=== PATIENT | male | born 1955 | race Caucasian/White ===

== ENCOUNTER 2019-08-28 17:18 | Emergency (ER) | payer MEDICARE, OTHER ==
[2019-08-28 17:20] VITALS: BP 168/78
--- NOTE | 2019-08-28 17:24 | ED General ---
General Stated Complaint: TOE LACERATION History of Present Illness Date Seen by Provider: August 28, 2019 Time Seen by Provider: 17:23 Initial Comments Patient presenting to emergency department for evaluation of right big toe laceration that was sustained earlier today at approximately 3:00. Patient is on insulin pump and has advanced diabetic neuropathy and he has very limited sensation and he does not know what exactly happened but he has an elliptical cut to the bottom of his big toe. He is not sure on his last tetanus shot so was updated here. He is here because he has had continued bleeding from the wound as he is on Zarontin and Plavix for his multiple vascular issues. He is in no obvious distress with normal vital signs. Allergies and Home Medications Patient Home Medication List Home Medication List Reviewed: Yes Review of Systems Review of Systems Constitutional: no symptoms reported Respiratory: no symptoms reported Cardiovascular: no symptoms reported Skin: other (wound) Past Eriscmy-Dcekff-Nmunbr Hx Patient Social History Recent Foreign Travel: No Contact w/Someone Who Travel: No Physical Exam Vital Signs Capillary Refill : Height, Weight, BMI Height: '" Weight: lbs. oz. kg; BMI Method: General Appearance: No Apparent Distress, WD/WN Skin: Other (approximate 2 cm elliptical surface cut with bleeding noted on the bottom of his big toe. The bleeding is very minimal at this time.) Progress/Results/Core Measures Suspected Sepsis SIRS Temperature: Pulse: Respiratory Rate: Blood Pressure / Mean: Results/Orders Vital Signs/I&O Capillary Refill : Progress Note : Progress Note Bleeding had almost stopped completely except for a pinpoint lesion so I used silver nitrate to cauterize the bleeding and then placed Dermabond on the wound to reinforce it to hopefully keep it from bleeding again. The wound was wrapped and he had intact cap refill after wrapping. Given he is a diabetic he was started on Keflex. Patient told to have the wound rechecked within 24-48 hours and come back to the ED sooner with worsening pain bleeding signs of infection or other general concerns. Patient aware and agreeable with plan and verbalized understanding of the above instructions. Departure Impression Primary Impression: Toe laceration Qualified Codes: S91.111A - Laceration without foreign body of right great toe without damage to nail, initial encounter Disposition: 01 HOME, SELF-CARE Condition: Stable Departure-Patient Inst. Referrals: KAMLA MOSER MD (PCP/Family) Primary Care Physician Patient Instructions: Wound Care Scripts Cephalexin (Keflex) 500 Mg Capsule 500 MG PO TID for 7 Days, CAP Prov: ANSHU ROJAS DO 08/28/19 ANSHU ROJAS DO August 28, 2019 17:24
[2019-08-28] MEDS ORDERED: TETANUS,DIPTH,PERTUSS P/F (BOOSTRIX) 0.5 ML VIAL IM ONE (17:45)
[2019-08-28] MEDS ORDERED: CEPH-507 PO (17:46)
--- OUTSIDE RECORDS SUMMARY | 2019-08-28 20:15 | XMS REPORT | Continuity of Care Document ---
Author Organization Unknown Address Unknown Phone Unavailable Allergies There is no data. Medications There is no data. Problems There is no data. Procedures There is no data. Results There is no data. Encounters ACCT No. Visit Date/Time Discharge Status Pt. Type Provider Facility Loc./Unit Complaint [id number] 08/28/2019 17:21:00 020 17:52:00 DIS Emergency ANSHU ROJAS DO [facility] ER FS TOE LACERATION [id number] 08/06/2018 15:03:00 019 23:59:59 CLS Preadmit KAMLA MOSER MD [facility] RAD DDD
== END 2019-08-28 17:52 | disposition home or self-care (01) ==
LOC: EDUNIT# 17:18 → ER FS 17:21
DX: S91.111A Laceration without foreign body of right great toe without damage to nail, initial encounter (principal); E11.40 Type 2 diabetes mellitus with diabetic neuropathy, unspecified; Z79.4 Long term (current) use of insulin; Z23 Encounter for immunization; X58.XXXA Exposure to other specified factors, initial encounter
CPT/HCPCS: 12002; 90715

== ENCOUNTER 2020-02-13 07:15 | Outpatient (CLI) | payer MEDICARE, OTHER ==
[~2020-02-13 07:15] MED LIST: CEPH-507 PO
== END 2020-12-15 10:45 | disposition home or self-care (01) ==
LOC: LAB FS 07:15
PROVIDERS: ATTEND Pediatrics
DX: U07.1 COVID-19 (principal)
CPT/HCPCS: 87635

== ENCOUNTER → 2022-01-14 | Outpatient (CLI) | payer MEDICARE, OTHER | LOC: WOUNDCARE 09:26 | PROVIDERS: ATTEND Family Medicine | DX: T81.31XA Disruption of external operation (surgical) wound, not elsewhere classified, initial encounter (principal); T87.89 Other complications of amputation stump; T87.43 Infection of amputation stump, right lower extremity; M86.471 Chronic osteomyelitis with draining sinus, right ankle and foot; E11.621 Type 2 diabetes mellitus with foot ulcer; E11.65 Type 2 diabetes mellitus with hyperglycemia; E11.40 Type 2 diabetes mellitus with diabetic neuropathy, unspecified; B95.62 Methicillin resistant Staphylococcus aureus infection as the cause of diseases classified elsewhere; I25.10 Atherosclerotic heart disease of native coronary artery without angina pectoris; N18.30 Chronic kidney disease, stage 3 unspecified; M62.81 Muscle weakness (generalized); R11.0 Nausea | CPT/HCPCS: 11042; G0463 ==

== ENCOUNTER → 2022-01-20 | Outpatient (CLI) | payer MEDICARE, OTHER | LOC: WOUNDCARE 08:14 | PROVIDERS: ATTEND Family Medicine | DX: T81.31XA Disruption of external operation (surgical) wound, not elsewhere classified, initial encounter (principal); T87.89 Other complications of amputation stump; T87.43 Infection of amputation stump, right lower extremity; M86.471 Chronic osteomyelitis with draining sinus, right ankle and foot; E11.621 Type 2 diabetes mellitus with foot ulcer; E11.65 Type 2 diabetes mellitus with hyperglycemia; E11.40 Type 2 diabetes mellitus with diabetic neuropathy, unspecified; E11.22 Type 2 diabetes mellitus with diabetic chronic kidney disease; N18.30 Chronic kidney disease, stage 3 unspecified; R53.1 Weakness; R11.0 Nausea; B95.62 Methicillin resistant Staphylococcus aureus infection as the cause of diseases classified elsewhere; I25.10 Atherosclerotic heart disease of native coronary artery without angina pectoris; E11.52 Type 2 diabetes mellitus with diabetic peripheral angiopathy with gangrene; I96 Gangrene, not elsewhere classified | CPT/HCPCS: 11042; G0463 ==

== ENCOUNTER → 2022-01-28 | Outpatient (CLI) | payer MEDICARE, OTHER | LOC: WOUNDCARE 10:23 | PROVIDERS: ATTEND Family Medicine | DX: T81.31XA Disruption of external operation (surgical) wound, not elsewhere classified, initial encounter (principal); T87.89 Other complications of amputation stump; T87.43 Infection of amputation stump, right lower extremity; M86.471 Chronic osteomyelitis with draining sinus, right ankle and foot; E11.621 Type 2 diabetes mellitus with foot ulcer; E11.65 Type 2 diabetes mellitus with hyperglycemia; E11.40 Type 2 diabetes mellitus with diabetic neuropathy, unspecified; B95.62 Methicillin resistant Staphylococcus aureus infection as the cause of diseases classified elsewhere; I25.10 Atherosclerotic heart disease of native coronary artery without angina pectoris; E11.22 Type 2 diabetes mellitus with diabetic chronic kidney disease; N18.30 Chronic kidney disease, stage 3 unspecified; M62.81 Muscle weakness (generalized); E11.52 Type 2 diabetes mellitus with diabetic peripheral angiopathy with gangrene | CPT/HCPCS: 11042 ==

== ENCOUNTER → 2022-02-04 | Outpatient (CLI) | payer MEDICARE, OTHER | LOC: WOUNDCARE 11:05 | PROVIDERS: ATTEND Family Medicine | DX: T81.31XA Disruption of external operation (surgical) wound, not elsewhere classified, initial encounter (principal); T87.89 Other complications of amputation stump; T87.43 Infection of amputation stump, right lower extremity; M86.471 Chronic osteomyelitis with draining sinus, right ankle and foot; E11.621 Type 2 diabetes mellitus with foot ulcer; L97.509 Non-pressure chronic ulcer of other part of unspecified foot with unspecified severity; E11.40 Type 2 diabetes mellitus with diabetic neuropathy, unspecified; B95.62 Methicillin resistant Staphylococcus aureus infection as the cause of diseases classified elsewhere; I25.10 Atherosclerotic heart disease of native coronary artery without angina pectoris; E11.22 Type 2 diabetes mellitus with diabetic chronic kidney disease; E11.65 Type 2 diabetes mellitus with hyperglycemia; N18.30 Chronic kidney disease, stage 3 unspecified; R53.1 Weakness | CPT/HCPCS: 11042; G0463 ==

== ENCOUNTER → 2022-02-18 | Outpatient (CLI) | payer MEDICARE, OTHER | LOC: WOUNDCARE 08:38 | PROVIDERS: ATTEND Family Medicine | DX: I96 Gangrene, not elsewhere classified (principal); T81.31XA Disruption of external operation (surgical) wound, not elsewhere classified, initial encounter; T87.89 Other complications of amputation stump; T87.43 Infection of amputation stump, right lower extremity; M86.471 Chronic osteomyelitis with draining sinus, right ankle and foot; E11.621 Type 2 diabetes mellitus with foot ulcer; E11.65 Type 2 diabetes mellitus with hyperglycemia; E11.40 Type 2 diabetes mellitus with diabetic neuropathy, unspecified; I25.10 Atherosclerotic heart disease of native coronary artery without angina pectoris; N18.30 Chronic kidney disease, stage 3 unspecified; M62.81 Muscle weakness (generalized) | CPT/HCPCS: 11042; A6197; A6212; G0463 ==

== ENCOUNTER → 2022-02-25 | Outpatient (CLI) | payer MEDICARE, OTHER | LOC: WOUNDCARE 08:50 | PROVIDERS: ATTEND Family Medicine | DX: I96 Gangrene, not elsewhere classified (principal); T87.89 Other complications of amputation stump; E11.621 Type 2 diabetes mellitus with foot ulcer; E11.40 Type 2 diabetes mellitus with diabetic neuropathy, unspecified; E11.65 Type 2 diabetes mellitus with hyperglycemia; I25.10 Atherosclerotic heart disease of native coronary artery without angina pectoris; N18.30 Chronic kidney disease, stage 3 unspecified; M62.81 Muscle weakness (generalized) | CPT/HCPCS: A6212; G0463; 99212 ==

== ENCOUNTER → 2022-03-01 | Outpatient (CLI) | payer MEDICARE, OTHER | LOC: WOUNDCARE 08:29 | PROVIDERS: ATTEND Family Medicine | DX: T81.31XA Disruption of external operation (surgical) wound, not elsewhere classified, initial encounter (principal); T87.89 Other complications of amputation stump; E11.621 Type 2 diabetes mellitus with foot ulcer; E11.65 Type 2 diabetes mellitus with hyperglycemia; E11.40 Type 2 diabetes mellitus with diabetic neuropathy, unspecified; I25.10 Atherosclerotic heart disease of native coronary artery without angina pectoris; E11.22 Type 2 diabetes mellitus with diabetic chronic kidney disease; N18.30 Chronic kidney disease, stage 3 unspecified; M62.81 Muscle weakness (generalized); E11.52 Type 2 diabetes mellitus with diabetic peripheral angiopathy with gangrene; I96 Gangrene, not elsewhere classified | CPT/HCPCS: 11042; A6212; G0463 ==

== ENCOUNTER → 2022-03-11 | Outpatient (CLI) | payer MEDICARE, OTHER | LOC: WOUNDCARE 08:28 | PROVIDERS: ATTEND Family Medicine | DX: T81.31XA Disruption of external operation (surgical) wound, not elsewhere classified, initial encounter (principal); T87.89 Other complications of amputation stump; E11.621 Type 2 diabetes mellitus with foot ulcer; E11.65 Type 2 diabetes mellitus with hyperglycemia; E11.40 Type 2 diabetes mellitus with diabetic neuropathy, unspecified; I25.10 Atherosclerotic heart disease of native coronary artery without angina pectoris; E11.22 Type 2 diabetes mellitus with diabetic chronic kidney disease; N18.30 Chronic kidney disease, stage 3 unspecified; M62.81 Muscle weakness (generalized); E11.52 Type 2 diabetes mellitus with diabetic peripheral angiopathy with gangrene | CPT/HCPCS: 11042; 85652; 86141; A6212; G0463; 36415 ==

== ENCOUNTER → 2022-03-15 | Outpatient (CLI) | payer MEDICARE, OTHER ==
[~2022-03-15] MED LIST changes: +CATHETER FLUSH 10 ML SYR IVP PRN
--- NOTE | 2022-03-15 20:35 | Diagnostic Imaging Report ---
INDICATION: Open wound on the lateral side of the right foot. 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 Patient was administered 25.6 mCi technetium 99m MDP intravenously and dynamic flow, blood pool and delayed imaging over bilateral feet was performed. There appears to be some asymmetric increased blood flow to the left foot. There is also some blood pool and delayed imaging in the midportion of the left foot. Right foot does show normal blood flow, blood pool and delayed activity. No definite findings to suggest osteomyelitis in the right foot is seen. There does appear to be some three-phase abnormality in the midportion of the left foot and correlation with plain films or MRI would be useful for further evaluation. IMPRESSION: 1. 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 No abnormality in the right foot is seen. Dictated by: Dictated on workstation # [id number]
== END ==
LOC: CARD 11:14
PROVIDERS: ATTEND Family Medicine
DX: T87.89 Other complications of amputation stump (principal)
CPT/HCPCS: 78315; A9503

== ENCOUNTER → 2022-03-18 | Outpatient (CLI) | payer MEDICARE, OTHER ==
[~2022-03-18] MED LIST changes: -CATHETER FLUSH 10 ML SYR IVP PRN
== END ==
LOC: WOUNDCARE 08:36
PROVIDERS: ATTEND Family Medicine
DX: T81.31XA Disruption of external operation (surgical) wound, not elsewhere classified, initial encounter (principal); T87.89 Other complications of amputation stump; E11.621 Type 2 diabetes mellitus with foot ulcer; E11.65 Type 2 diabetes mellitus with hyperglycemia; E11.40 Type 2 diabetes mellitus with diabetic neuropathy, unspecified; I25.10 Atherosclerotic heart disease of native coronary artery without angina pectoris; E11.22 Type 2 diabetes mellitus with diabetic chronic kidney disease; N18.30 Chronic kidney disease, stage 3 unspecified; M62.81 Muscle weakness (generalized); L97.509 Non-pressure chronic ulcer of other part of unspecified foot with unspecified severity; E11.52 Type 2 diabetes mellitus with diabetic peripheral angiopathy with gangrene; I96 Gangrene, not elsewhere classified
CPT/HCPCS: 11042; 87070; 87077; 87205; A6212; G0463; 87186

== ENCOUNTER → 2022-03-25 | Outpatient (CLI) | payer MEDICARE, OTHER | LOC: WOUNDCARE 08:37 | PROVIDERS: ATTEND Family Medicine | DX: T81.31XA Disruption of external operation (surgical) wound, not elsewhere classified, initial encounter (principal); T87.89 Other complications of amputation stump; I25.10 Atherosclerotic heart disease of native coronary artery without angina pectoris; N18.30 Chronic kidney disease, stage 3 unspecified; E11.621 Type 2 diabetes mellitus with foot ulcer; E11.65 Type 2 diabetes mellitus with hyperglycemia; E11.40 Type 2 diabetes mellitus with diabetic neuropathy, unspecified; M62.81 Muscle weakness (generalized) | CPT/HCPCS: 11042; A6212; G0463 ==

== ENCOUNTER → 2022-04-07 | Outpatient (CLI) | payer MEDICARE, OTHER | LOC: WOUNDCARE 08:25 | PROVIDERS: ATTEND Family Medicine | DX: T81.31XA Disruption of external operation (surgical) wound, not elsewhere classified, initial encounter (principal); T87.89 Other complications of amputation stump; E11.621 Type 2 diabetes mellitus with foot ulcer; E11.65 Type 2 diabetes mellitus with hyperglycemia; E11.40 Type 2 diabetes mellitus with diabetic neuropathy, unspecified; I25.10 Atherosclerotic heart disease of native coronary artery without angina pectoris; E11.22 Type 2 diabetes mellitus with diabetic chronic kidney disease; N18.30 Chronic kidney disease, stage 3 unspecified; M62.81 Muscle weakness (generalized) | CPT/HCPCS: A6212; G0463; 99212 ==